=== PATIENT | male | born 1990 | race African-American/Black ===

== ENCOUNTER 2016-06-14 18:04 | Observation (INO) | payer SELFPAY ==
[~2016-06-14] VITALS: Ht 190.5 cm; Wt 100.9 kg
[2016-06-14 18:39] LABS: BASO % 0.3 % (0.0-2.0); EOS % 0.1 % (0-4.0); GRAN # 7.4 (1.4-6.5); GRAN % 84.6 % (42.2-75.2); HEMATOCRIT 42.8 % (42.0-52.0); LYMPH # 0.9 (1.2-3.4); LYMPH % 10.8 % (20.0-51.0); MEAN CELL VOLUME 70 fl (80.0-100.0); MEAN CORPUSCULAR HEMOGLOBIN 23 pg (27.0-31.0); MEAN CORPUSCULAR HGB CONC 33 g/dl (33.0-37.0); MEAN PLATELET VOLUME 11.3 fl (7.4-10.4); MONO # 0.4 (0.1-0.6); PLATELET COUNT 225 K/mm3 (130-400); RED BLOOD COUNT 6.12 M/mm3 (4.20-5.60); WHITE BLOOD COUNT 8.7 K/mm3 (4.8-10.8)
[2016-06-14 18:56] LABS: ADJUSTED CALCIUM 9.5 mg/dL (8.4-10.2); ALANINE AMINOTRANSFERASE 42 U/L (21-72); ALBUMIN 5.1 gm/dL (3.5-5.0); ALKALINE PHOSPHATASE 64 U/L (50-136); ANION GAP 13 mmol/L (7-16); BILIRUBIN,TOTAL 1.1 mg/dL (0.0-1.0); BLOOD UREA NITROGEN 13 mg/dL (9-20); CALCIUM 10.4 mg/dL (8.4-10.2); CARBON DIOXIDE 29 mmol/L (22-30); CHLORIDE 100 mmol/L (98-107); CREATININE, serum 1.41 mg/dL (0.66-1.25); GLUCOSE 92 mg/dL (74-106); LIPASE 58 U/L (23-300); MAGNESIUM 1.9 mg/dL (1.6-2.3); POTASSIUM 4.3 mmol/L (3.4-5.0); SODIUM 142 mmol/L (137-145); TOTAL PROTEIN 8.9 gm/dL (6.4-8.2)
[2016-06-14 18:58] LABS: ACETAMINOPHEN < 10 ug/mL (10-30); SALICYLATE < 1.0 mg/dL
[2016-06-14 19:03] LABS: AMPHETAMINE URINE NEGATIVE; BARBITURATES URINE NEGATIVE; BENZODIAZEPINES URINE NEGATIVE; BUPRENORPHINE URINE NEGATIVE; METHADONE URINE NEGATIVE; OPIATES URINE NEGATIVE; OXYCODONE URINE NEGATIVE; PHENCYCLIDINE URINE NEGATIVE; PROPOXYPHENE URINE NEGATIVE; THC CANNABINOIDS URINE POSITIVE
[2016-06-15] VITALS (689 sets, daily range): BP systolic 127–163; BP diastolic 76–93; PULSE 46–71; TEMP 96.9–98; O2SAT 60–100
[2016-06-16] VITALS (115 sets, daily range): BP systolic 132–157; BP diastolic 80–110; PULSE 56–99; TEMP 97.6–100.1; O2SAT 37–100
== END 2016-06-17 14:31 ==
LOC: COL.ER 18:04 → EDBD 18:06 → ICU 22:50 → COL.ER 22:50 → ICU 22:50
PROVIDERS: Emergency Medicine
DX: F20.0 Paranoid schizophrenia (principal); Z79.899 Other long term (current) drug therapy; S60.221A Contusion of right hand, initial encounter; W22.01XA Walked into wall, initial encounter; Y92.89 Other specified places as the place of occurrence of the external cause; F12.10 Cannabis abuse, uncomplicated
CPT/HCPCS: 90791-AI; G0378

== ENCOUNTER 2016-06-17 15:56 | Observation (INO) | payer SELFPAY | END 2016-06-17 18:00 | LOC: ICU 15:56 | DX: F20.0 Paranoid schizophrenia (principal); F12.10 Cannabis abuse, uncomplicated | CPT/HCPCS: G0378; G0379 ==